=== PATIENT | female | born 1960 | race Caucasian/White ===

== ENCOUNTER 2022-07-02 09:46 | Emergency (ER) | payer OTHER ==
[2022-07-02 10:06] VITALS: BP 142/69; PULSE 73; RESP 16; TEMP 99; BMI 23.3
[2022-07-02] MEDS ORDERED: IBUPROFEN 400 MG TABLET (FP) PO ONE ×2 (10:13→10:24)
[2022-07-02] MEDS ORDERED: LIDOCAINE 5% TOPICAL PATCH TP ONE (10:13)
[2022-07-02] MEDS ORDERED: LIDOCAINE 5% TOPICAL PATCH ONE (10:24)
[2022-07-02] MEDS ORDERED: LIDOCAINE PATCH REMOVAL MC SCH (22:00)
== END 2022-07-02 14:07 | disposition home or self-care (01) ==
LOC: FER 09:46
DX: M79.10 Myalgia, unspecified site (principal)
CPT/HCPCS: 73562-TC-RT-FY; 99284-25